=== PATIENT | male | born 1990 ===

== ENCOUNTER 2017-08-16 18:23 | Emergency (ER) | payer OTHER | END 2017-08-16 18:25 | disposition E | DRG 965 | LOC: EDBD 18:23 → ED 18:23 | DX: S27.0XXA Traumatic pneumothorax, initial encounter; I46.8 Cardiac arrest due to other underlying condition; Y92.9 Unspecified place or not applicable; V89.2XXA Person injured in unspecified motor-vehicle accident, traffic, initial encounter; S80.212A Abrasion, left knee, initial encounter; S80.211A Abrasion, right knee, initial encounter; S60.512A Abrasion of left hand, initial encounter; S60.511A Abrasion of right hand, initial encounter; S62.501A Fracture of unspecified phalanx of right thumb, initial encounter for closed fracture ==